=== PATIENT | male | born 1955 | race Caucasian/White ===

== ENCOUNTER 2017-01-02 13:24 | Day surgery (SDC) | payer SELFPAY ==
[~2017-01-02] VITALS: Ht 177.8 cm; Wt 90.9 kg
[2017-01-02 13:28] VITALS: TEMP 97.9
[2017-01-02 14:36] LABS: BASO # 0.1 (0.0-0.2); BASO % 0.7 % (0.0-2.0); EOS # 0.1 (0.0-0.7); EOS % 1.6 % (0-4.0); GRAN # 4.8 (1.4-6.5); GRAN % 70.7 % (42.2-75.2); HEMATOCRIT 47.2 % (42.0-52.0); HEMOGLOBIN 16.1 g/dl (13.5-18.0); LYMPH # 1.5 (1.2-3.4); LYMPH % 21.4 % (20.0-51.0); MEAN CELL VOLUME 88 fl (80.0-100.0); MEAN CORPUSCULAR HEMOGLOBIN 30 pg (27.0-31.0); MEAN CORPUSCULAR HGB CONC 34 g/dl (33.0-37.0); MEAN PLATELET VOLUME 10.8 fl (7.4-10.4); MONO # 0.4 (0.1-0.6); MONO % 5.2 % (1.7-9.3); PLATELET COUNT 229 K/mm3 (130-400); RED BLOOD COUNT 5.37 M/mm3 (4.20-5.60); REDCELL DISTRIBUTION WIDTH-CV 13.7 % (11.5-14.5); WHITE BLOOD COUNT 6.8 K/mm3 (4.8-10.8)
[2017-01-02 14:49] LABS: ADJUSTED CALCIUM 9.3 mg/dL (8.4-10.2); ALBUMIN 4.3 gm/dL (3.5-5.0); BILIRUBIN,TOTAL 0.6 mg/dL (0.0-1.0); CALCIUM 9.5 mg/dL (8.4-10.2); CREATININE, serum 0.82 mg/dL (0.66-1.25); TOTAL PROTEIN 7.7 gm/dL (6.4-8.2)
[2017-01-02 15:34] VITALS: BP 157/109; PULSE 81
[2017-01-02 15:49] VITALS: BP 155/72; PULSE 92
[2017-01-02 16:04] VITALS: BP 136/83; PULSE 78
[2017-01-02] MEDS ORDERED: CEPHALEXIN500 M1 PO (16:13)
[2017-01-02] MEDS ORDERED: NORCO 325 MG-7.1 TAB PO (16:13)
== END 2017-01-02 16:30 | disposition home or self-care (01) ==
LOC: COL.ER 13:24 → SDCO 14:37
PROVIDERS: Emergency Medicine
DX: S68.123A Partial traumatic metacarpophalangeal amputation of left middle finger, initial encounter (principal); I10 Essential (primary) hypertension; Z91.14 Patient's other noncompliance with medication regimen; W23.0XXA Caught, crushed, jammed, or pinched between moving objects, initial encounter; Y92.89 Other specified places as the place of occurrence of the external cause
CPT/HCPCS: J0690; J1170; J2250; J2405; J3010